=== PATIENT | female | born 1965 | race Native Hawaiian/Other Pacific Islander ===

== ENCOUNTER 2017-07-10 11:31 | Observation (INO) | payer BC ==
[~2017-07-10] VITALS: Ht 167.6 cm; Wt 87.7 kg
[2017-07-10] VITALS (8 sets, daily range): BP systolic 111–140; BP diastolic 63–93; TEMP 98.3–100.4; Ht 167.6 cm; Wt 87.7 kg
[~2017-07-10 11:31] MED LIST: ACET7.5T70 PO; GABA100C2 PO; IBUP800T30 PO; NORVASC2.5 MG PO; PAXIL10 MG PO
[2017-07-10 12:18] LABS: PLATELET COUNT 237 K/uL (152-353)
[2017-07-10 12:23] LABS: POTASSIUM 3.7 mmol/L (3.6-5.2); SODIUM 138 mmol/L (136-145)
[2017-07-11 04:00] VITALS: BP 99/54; TEMP 98.9
[2017-07-11 05:45] LABS: POTASSIUM 3.1 mmol/L (3.6-5.2); SODIUM 137 mmol/L (136-145)
[2017-07-11 06:08] LABS: PLATELET COUNT 186 K/uL (152-353)
[2017-07-11 07:53] VITALS: BP 105/58; TEMP 98.7
[2017-07-11] MEDS ORDERED: LEVAQUIN250 MG PO (11:27)
[2017-07-11] MEDS ORDERED: BENZONATATE200 MG PO (11:27)
[2017-07-11 11:45] VITALS: BP 108/56; TEMP 98.9
--- NOTE | 2017-07-11 12:30 | NUR ---
IV D/C. FU WITH PCP IN 3-5 DAYS. PRESCRIPTIONS CALLED IN TO PHARMACY. PT HAS NO FUTHER QUESTIONS. PT AMBULATED OUT AT THIS TIME, NO PROBLEMS NOTED.
== END 2017-07-11 12:30 | disposition home or self-care (01) ==
LOC: ED 11:31 → MED/SURG 14:30
PROVIDERS: ADMIT Family Medicine
DX: J18.8 Other pneumonia, unspecified organism (principal); R06.02 Shortness of breath; I10 Essential (primary) hypertension; M79.7 Fibromyalgia
CPT/HCPCS: 36415; 36600; 80048; 82550; 82805; 84484; 85027; 87040; 93005; 94640; 94664; 94760; 96360; 96361; 96365; 96366; 96367; 96374; 96375; 99220; 99284; G0378; J1956; J2270; J2405

== ENCOUNTER 2017-08-02 14:14 | Outpatient (CLI) | payer BC ==
[~2017-08-02 14:14] MED LIST changes: +BENZONATATE200 MG PO; +LEVAQUIN250 MG PO
== END 2017-08-02 19:24 | disposition home or self-care (01) ==
LOC: RAD 14:14
DX: J20.8 Acute bronchitis due to other specified organisms (principal)

== ENCOUNTER 2018-01-09 16:54 | Outpatient (CLI) | payer BC | END 2018-01-09 21:26 | disposition home or self-care (01) | LOC: RAD 16:54 | DX: M70.71 Other bursitis of hip, right hip (principal) ==

== ENCOUNTER 2018-06-19 15:32 | Outpatient (CLI) | payer BC | END 2018-06-19 21:47 | disposition home or self-care (01) | LOC: MAMMO 15:32 | DX: Z13.820 Encounter for screening for osteoporosis (principal); Z78.0 Asymptomatic menopausal state; Z12.31 Encounter for screening mammogram for malignant neoplasm of breast ==

== ENCOUNTER 2020-01-21 09:50 | Inpatient (IN) | payer BC, OTHER ==
[~2020-01-21] VITALS: Ht 165.1 cm; Wt 110.8 kg
[2020-01-21 13:15] LABS: PLATELET COUNT 311 K/uL (152-353)
[2020-01-21 13:38] VITALS: BP 124/65; TEMP 97.9; Ht 165.1 cm; Wt 110.8 kg
[2020-01-21 13:42] LABS: POTASSIUM 3.9 mmol/L (3.6-5.2)
[2020-01-21 16:00] VITALS: BP 125/53; TEMP 98
[2020-01-21 20:00] VITALS: BP 136/67; TEMP 98.3
[2020-01-22 00:07] VITALS: BP 129/56; TEMP 98.8
--- NOTE | 2020-01-22 02:04 | NUR ---
01/22/20 0204 RESPIRATORY PRESENT IN ROOM TO GIVE SMART VEST THERAPY.CALL LIGHT WITHIN REACH.CC
[2020-01-22 04:00] VITALS: BP 132/74; TEMP 97.8
--- NOTE | 2020-01-22 06:15 | NUR ---
01/22/20 0600 RESTING IN BED WITH EYES CLOSED.NAD NOTED.IV FLUIDS INFUSING WITHOUT DIFFICULTY.CC
[2020-01-22 08:00] VITALS: BP 150/60; TEMP 98.6
[2020-01-22 12:00] VITALS: BP 135/61; TEMP 98.3
[2020-01-22 15:37] LABS: POTASSIUM 4.4 mmol/L (3.6-5.2)
[2020-01-22 16:31] LABS: PLATELET COUNT 245 K/uL (152-353)
--- NOTE | 2020-01-22 17:55 | NUR ---
PATIENT DISCHARGED HOME AT NOTED TIME. PT STABLE. PT DISCHARGED WITH ALL PERSONAL BELONGINGS. PT GIVEN PRESCRIPTION FOR ATIVAN 1MG PRN Q8HRS AND COMBIVENT 4 PUFFS Q4HRS. PT STATES SHE WILL F/U WITH PCP SATURDAY. AK STABLE.
== END 2020-01-23 00:13 | disposition home or self-care (01) | DRG 177 ==
LOC: MED/SURG 09:50
PROVIDERS: ADMIT Family Medicine
DX: U07.1 COVID-19 (principal); J18.9 Pneumonia, unspecified organism; J44.1 Chronic obstructive pulmonary disease with (acute) exacerbation; R06.82 Tachypnea, not elsewhere classified; I10 Essential (primary) hypertension; R63.4 Abnormal weight loss; E86.0 Dehydration; F41.8 Other specified anxiety disorders; R63.0 Anorexia
CPT/HCPCS: 80053; 82728; 83605; 83735; 85027; 85379; 87040; 87077; 87185; 87186; 87205; 93005; 94667; 94668; 94760; J0456; J0696; J1650

== ENCOUNTER 2020-01-29 10:49 | Outpatient (CLI) | payer BC, OTHER | END 2020-01-29 20:00 | disposition home or self-care (01) | LOC: RAD 10:49 | DX: U07.1 COVID-19 (principal) ==

== ENCOUNTER 2020-02-01 11:59 | Outpatient (CLI) | payer BC, OTHER | END 2020-02-01 22:38 | disposition home or self-care (01) | LOC: CT 11:59 | DX: U07.1 COVID-19 (principal) | CPT/HCPCS: Q9963 ==

== ENCOUNTER 2020-03-24 10:04 | Outpatient (CLI) | payer BC, OTHER | END 2020-03-24 23:33 | disposition home or self-care (01) | LOC: US 10:04 | DX: I73.9 Peripheral vascular disease, unspecified (principal) ==

== ENCOUNTER 2020-04-20 14:51 | Outpatient (CLI) | payer BC | END 2020-04-20 20:16 | disposition home or self-care (01) | LOC: RESP 14:51 | DX: J44.9 Chronic obstructive pulmonary disease, unspecified (principal) ==

== ENCOUNTER 2020-06-13 12:54 | Outpatient (CLI) | payer BC | END 2020-06-13 21:40 | disposition home or self-care (01) | LOC: RESP 12:54 | PROVIDERS: ATTEND Internal Medicine Sleep Medicine | DX: R06.02 Shortness of breath (principal) ==

== ENCOUNTER 2020-09-30 15:03 | Outpatient (CLI) | payer BC | END 2020-09-30 19:51 | disposition home or self-care (01) | LOC: CT 15:03 | PROVIDERS: ATTEND Internal Medicine Sleep Medicine | DX: R05 Cough (principal) ==